=== PATIENT | female | born 1980 | race Two or more races ===

== ENCOUNTER 2020-01-25 06:21 | Day surgery (SDC) | payer OTHER ==
[2020-01-25] MEDS ORDERED: NAPROXEN500 M1 PO (10:32)
[2020-01-25] MEDS ORDERED: DOXYCYCLINE HY100 MG PO (10:32)
== END 2020-01-25 15:10 | disposition home or self-care (01) ==
LOC: CIR.AMB 06:21
PROVIDERS: ATTEND Obstetrics & Gynecology
DX: D25.0 Submucous leiomyoma of uterus (principal); N84.0 Polyp of corpus uteri; Z20.828 Contact with and (suspected) exposure to other viral communicable diseases